=== PATIENT | male | born 1940 | race Caucasian/White ===

== ENCOUNTER → 2016-10-03 | Outpatient (CLI) | payer MEDICARE, BC ==
[~2016-10-03] MED LIST: AMIO200T2 PO; CARV12.52 PO; CITA40TA14 PO; CYCL5TAB PO; DIGO250T13 PO; DIPH25CA84 PO; FENO150C2 PO; FURO-33 PO; LOSA25TA34 PO; METF10002 PO; MULT-37 PO; POTA10CA37 PO; [UNRECOGNIZED DRUG - CODE] PO
[2016-10-03 14:32] LABS: BASOPHILS # (AUTO) 0.1 T/MM3 (0-0.2); BASOPHILS % (AUTO) 0.6 % (0-2); EOSINOPHILS # (AUTO) 0.2 T/MM3 (0-0.5); EOSINOPHILS % (AUTO) 1.9 % (0-4); HCT - HEMATOCRIT 33.3 % (41-53); HGB - HEMOGLOBIN 10.6 GM/DL (13.5-17.5); IMMATURE GRANULOCYTE # (AUTO) 0.07 T/MM3 (0.00-0.03); IMMATURE GRANULOCYTE % (AUTO) 0.7 % (0.0-0.5); LYMPHOCYTES # (AUTO) 1.2 T/MM3 (1-4.8); LYMPHOCYTES % (AUTO) 12.2 % (23-45); MEAN CORPUSCULAR HGB 28.8 UUG (26-34); MEAN CORPUSCULAR HGB CONC(MCHC 31.8 GM/DL (31-37); MEAN CORPUSCULAR VOLUME 90.5 UM3 (80-100); MEAN PLATELET VOLUME 8.9 UM3 (9.4-12.4); MONOCYTES # (AUTO) 0.8 T/MM3 (0-0.8); MONOCYTES % (AUTO) 7.8 % (0-9.0); NEUTROPHILS #(AUTO)-ABSOLUTE 7.5 T/MM3 (1.8-7.7); NEUTROPHILS % (AUTO) 76.8 % (33-66); RED BLOOD COUNT 3.68 M/MM3 (4.50-5.90); WBC - WHITE BLOOD COUNT 9.8 T/MM3 (4.5-11.0)
[2016-10-03 14:40] LABS: ANION GAP 11 MEQ/L (5-15); BUN/CREATININE RATIO 19 RATIO (6-26); CALCIUM 9.7 MG/DL (8.4-10.2); CHLORIDE 99 MEQ/L (98-107); CO2 - CARBON DIOXIDE 29 MEQ/L (22-30); CREATININE 1.5 MG/DL (0.8-1.5); GLOMERULAR FILTRATION RATE 46; GLUCOSE 141 MG/DL (75-110); POTASSIUM 4.5 MEQ/L (3.6-5); SODIUM 139 MEQ/L (134-144)
[2016-10-03 15:23] LABS: INR 1.58 (0.76-1.04); PROTHROMBIN TIME 17.2 SEC (9.31-12.49)
== END ==
LOC: IMA 14:07
PROVIDERS: ATTEND Family Medicine
DX: I48.2 Chronic atrial fibrillation (principal); S36.81XA Injury of peritoneum, initial encounter
CPT/HCPCS: 36415; 80048; 85025; 85610